=== PATIENT | female | born 1980 ===

== ENCOUNTER 2025-04-02 06:05 | Day surgery (SDC) | payer OTHER ==
[2025-03-31 09:32] VITALS: BP 131/88
[2025-03-31 10:01] LABS: BASO % 0.7 % (0.1-1.2); EOS # 0.12 (0.04-0.54); EOS % 3.0 % (0.7-7.0); LYMPH # 1.11 (1.18-3.74); LYMPH % 27.6 % (19.3-53.1); MEAN PLATELET VOLUME 11.40 fl (9.4-12.4); MONO # 0.38 (0.24-0.82); MONO % 9.5 % (4.7-12.5); NEUT # 2.37 (1.56-6.13); NEUT % 59.0 % (34.0-71.1); RED CELL DISTRIBUTION WIDTH 12.4 % (11.6-14.4)
[2025-03-31 10:02] LABS: URINE APPEARANCE Clear; URINE BILIRRUBIN Negative (NEGATIVE); URINE BLOOD Negative; URINE COLOR Yellow; URINE GLUCOSE Negative (NEGATIVE); URINE KETONE Negative (NEGATIVE); URINE LEUKOCYTE Trace; URINE NITRATE Negative; URINE PROTEIN Negative (NEGATIVE); URINE UROBILINOGEN 0.2 E.U./dl
[2025-03-31 10:06] LABS: URINE BACTERIA 854.5 uL (0.0-1933); URINE EPITHELIAL CELLS 19.9 uL (0.0-38.8); URINE RBC 16.4 uL (0.0-20.8); URINE WBC 18.6 uL (0.0-23.2)
[2025-03-31 10:21] LABS: INR 1.02
[2025-03-31 10:40] LABS: URINE CAST 0.14 uL (0.0-1.40)
[2025-03-31 10:50] LABS: ALT/SGPT 25.0 U/L (12-78); AST/SGOT 20.0 U/L (15-37); BILIRUBIN TOTAL 0.5 mg/dL (0.3-1.2); BUN CREA RATIO 17.0 (7.0-25.0); CREATININE SERUM 0.7 mg/dL (0.55-1.02); GFR 91.33; GLOBULINA 3.5 G/DL (2.4-3.5); GLUCOSE FASTING 83.0 mg/dL (65-100); OSMOLALITY SERUM 284.0 MOSM/KG (275-295); TSH 2.7 uIU/mL (0.358-3.74)
[~2025-04-02] VITALS: Ht 172.7 cm; Wt 79.4 kg
[2025-04-02] MEDS ORDERED: CEFOXITIN SODIUM 2,000 MG VIAL IV ONE (07:57)
[2025-04-02] MEDS ORDERED: POVIDONE-IODINE 118 ML BOTT TOP ONE (09:29)
[2025-04-02] MEDS ORDERED: PROMETHAZINE HCL 50 MG/ML AMPUL IM ONE (11:00)
[2025-04-02] MEDS ORDERED: MORPHINE SULFATE 4 MG/ML VIAL IV PRN (11:00)
[2025-04-02] MEDS ORDERED: DOXYCYCLINE HY100 M3 PO (11:02)
[2025-04-02] MEDS ORDERED: NAPR500T14 PO (11:02)
== END 2025-04-02 16:20 | disposition home or self-care (01) ==
LOC: CIR.AMB 06:05
PROVIDERS: ATTEND Obstetrics & Gynecology
DX: D25.0 Submucous leiomyoma of uterus (principal); N84.0 Polyp of corpus uteri; N92.1 Excessive and frequent menstruation with irregular cycle